=== PATIENT | female | born 1975 | race Hispanic/Latino ===

== ENCOUNTER 2017-07-22 00:10 | Emergency (ER) | payer OTHER ==
[2017-07-22 00:25] VITALS: BP 150/90
[2017-07-22] MEDS ORDERED: KEPPRA 1,000 MG/NS 0.75% 100ML 1,000 MG/100 ML BAG IV ONE (00:50)
--- NOTE | 2017-07-22 00:54 | Emergency Department Report ---
HPI - General Chief Complaint: Seizure Time Seen by Provider: 07/22/17 00:43 - HPI HPI: [place] 24 The patient is a 42-year-old female presenting with a chief complaint seizure. Family states that her the patient fall and when they went into the room the patient was having a generalized tonic-clonic seizure lasting approximately 5- 10 minutes. Patient now only complains of some soreness to her scalp but denies headache. The patient was recently changed to Keppra for her seizures as she was attempting to get . The patient's last seizure before today occurred approximately 4 years ago Location: Central nervous system Duration: Lasted approximately 5-10 minutes Quality: Generalized tonic-clonic Severity: Moderate Modifying factors: [see above] Context: [see above] Mode of transportation: [not driving] ED Past Medical Hx - Past Medical History Previous Medical History?: Yes Hx Hypertension: Yes Hx Diabetes: Yes Hx Seizures: Yes Additional medical history: hypothyroidism - Surgical History Past Surgical History?: No Additional Surgical History: , PET - Family History Family history: no significant - Social History Smoking Status: Never Smoker Substance Use Type: None (denies illicit drug use), Alcohol (rarely) ED Review of Systems ROS: Stated complaint: SEIZURE Other details as noted in HPI Musculoskeletal: myalgia Neurological: other (seizure). denies: headache Physical Exam - Physical Exam Vital Signs: Vital Signs 07/22/17 00:18 Temperature 98 F Pulse Rate 88 Respiratory 16 Rate Blood Pressure 150/90 O2 Sat by Pulse 98 Oximetry Physical Exam: GENERAL: The patient is well-developed well-nourished female lying on stretcher not appearing to be in acute distress. He should using cell phone HEENT: Normocephalic. Atraumatic. Extraocular motions are intact. Patient has moist mucous membranes. NECK: Supple. No axial tenderness to palpation. CHEST/LUNGS: Clear to auscultation. There is no respiratory distress noted. HEART/CARDIOVASCULAR: Regular. There is no tachycardia. There is no gallop rub or murmur. ABDOMEN: Abdomen is soft, nontender. Patient has normal bowel sounds. There is no abdominal distention. SKIN: There is no rash. There is no edema. There is no diaphoresis. NEURO: The patient is awake, alert, and oriented. The patient is cooperative. The patient has no focal neurologic deficits. The patient has normal speech. Cranial nerves II through XII grossly intact, no drift MUSCULOSKELETAL: There is no evidence of acute injury. ED Course Vital Signs 07/22/17 00:18 Temperature 98 F Pulse Rate 88 Respiratory 16 Rate Blood Pressure 150/90 O2 Sat by Pulse 98 Oximetry - Reevaluation(s) Reevaluation #1: 07/22/17 03:01 Patient improved, states she just feels sleepy. ED Medical Decision Making - Lab Data Result diagrams: 07/22/17 01:03 07/22/17 01:03 Laboratory Tests 07/22/17 07/22/17 07/22/17 01:03 01:03 01:03 WBC 11.0 RBC 4.33 Hgb 13.1 Hct 38.8 MCV 90 MCH 30 MCHC 34 RDW 13.3 Plt Count 361 Lymph % (Auto) 29.7 Porter % (Auto) 5.9 Eos % (Auto) 1.5 Baso % (Auto) 0.5 Lymph # 3.3 Porter # 0.6 Eos # 0.2 Baso # 0.1 Seg Neutrophils % 62.4 Seg Neutrophils # 6.9 Sodium 138 Potassium 3.8 Chloride 95.9 L Carbon Dioxide 26 Anion Gap 20 BUN 8 Creatinine 0.6 L Estimated GFR > 60 BUN/Creatinine Ratio 13 Glucose 110 H Calcium 9.3 Magnesium 1.70 HCG, Qual Negative - Differential Diagnosis seizure Critical care attestation.: If time is entered above; I have spent that time in minutes in the direct care of this critically ill patient, excluding procedure time. ED Disposition Clinical Impression: Seizure Disposition: DC-01 TO HOME OR SELFCARE Is pt being admited?: No Does the pt Need Aspirin: No Condition: Stable Instructions: Epilepsy (ED) Additional Instructions: Return to the emergency department immediately should you develop worsening symptoms, fever, inability to tolerate food or liquid or any other concerns. Referrals: CHIKIS MENA MD [Primary Care Provider] - 3-5 Days Time of Disposition: 03:02
[2017-07-22 01:36] LABS: BUN/Creatinine Ratio 13; Blood Urea Nitrogen 8 mg/dL (7-17); Calcium 9.3 mg/dL (8.4-10.2); Hemolysis Index 2
[2017-07-22 01:39] LABS: Basophils # (Auto) 0.1 K/mm3 (0.0-0.1); Basophils % (Auto) 0.5 % (0.0-1.8); Eosinophils # (Auto) 0.2 K/mm3 (0.0-0.4); Eosinophils % (Auto) 1.5 % (0.0-4.3); Hematocrit 38.8 % (30.3-42.9); Hemoglobin 13.1 gm/dl (10.1-14.3); Lymphocytes # (Auto) 3.3 K/mm3 (1.2-5.4); Lymphocytes % (Auto) 29.7 % (13.4-35.0); Mean Corpuscular HGB Conc 34 % (30-34); Mean Corpuscular Hemoglobin 30 pg (28-32); Mean Corpuscular Volume 90 fl (79-97); Monocytes # (Auto) 0.6 K/mm3 (0.0-0.8); Monocytes % (Auto) 5.9 % (0.0-7.3); Platelet Count 361 K/mm3 (140-440); Red Blood Count 4.33 M/mm3 (3.65-5.03); Red Cell Distribution Width 13.3 % (13.2-15.2)
[2017-07-22] MEDS ORDERED: MOTRIN PO ONE (01:45)
== END 2017-07-22 03:16 | disposition home or self-care (01) ==
LOC: ED 00:10
DX: R56.9 Unspecified convulsions (principal); I10 Essential (primary) hypertension; E11.9 Type 2 diabetes mellitus without complications; E03.9 Hypothyroidism, unspecified
CPT/HCPCS: 36415; 80048; 83735; 84703; 85025; 96365; 99284; J1953